=== PATIENT | male | born 1990 | race African-American/Black ===

== ENCOUNTER 2017-02-20 10:46 | Emergency (ER) | payer OTHER ==
[~2017-02-20] VITALS: Ht 190.5 cm; Wt 86.2 kg
[~2017-02-20 10:46] MED LIST: FLEXERIL PO; MEDROLDOSEPACK PO; MOBIC15 MG PO
[2017-02-20 10:52] VITALS: BP 122/66
[2017-02-20 11:17] LABS: URINE BILIRUBIN NEGATIVE (Negative); URINE BLOOD NEGATIVE (Negative); URINE COLOR YELLOW; URINE GLUCOSE-RANDOM* NEGATIVE (Negative); URINE KETONES NEGATIVE (Negative); URINE LEUKOCYTES-REFLEX NEGATIVE (Negative); URINE PROTEIN (DIPSTICK) TRACE (Negative); URINE SPECIFIC GRAVITY 1.015 (1.003-1.035)
== END 2017-02-20 11:40 | disposition home or self-care (01) ==
LOC: ER 10:46
PROVIDERS: Emergency Medicine
DX: R10.30 Lower abdominal pain, unspecified (principal)

== ENCOUNTER 2017-05-07 15:00 | Emergency (ER) | payer OTHER ==
[2017-05-07 15:00] VITALS: BP 127/77
[2017-05-07] MEDS ORDERED: MEDROLDOSEPACK PO (15:48)
[2017-05-07] MEDS ORDERED: LIORESAL 10 MG10 MG PO (15:48)
== END 2017-05-07 15:48 | disposition home or self-care (01) ==
LOC: ER 15:00
DX: M43.6 Torticollis (principal); M25.512 Pain in left shoulder

== ENCOUNTER 2017-12-24 13:57 | Emergency (ER) | payer OTHER ==
[~2017-12-24] VITALS: Ht 185.4 cm; Wt 83.9 kg
[~2017-12-24 13:57] MED LIST changes: +LIORESAL 10 MG10 MG PO
[2017-12-24 14:21] LABS: URINE BILIRUBIN NEGATIVE (Negative); URINE BLOOD NEGATIVE (Negative); URINE CLARITY CLEAR; URINE COLOR YELLOW; URINE GLUCOSE-RANDOM* NEGATIVE (Negative); URINE KETONES TRACE (Negative); URINE LEUKOCYTES NEGATIVE (Negative); URINE NITRITE NEGATIVE (Negative); URINE PROTEIN (DIPSTICK) NEGATIVE (Negative); URINE SPECIFIC GRAVITY 1.015 (1.005-1.035)
[2017-12-24] MEDS ORDERED: ONDANSETRON HCL4 M2 PO (14:28)
[2017-12-24 14:33] LABS: ABSOLUTE NEUTROPHILS 3.9 thou/uL (1.4-8.2); BASOPHILS 0.8 % (0.0-2.0); EOSINOPHILS 5.5 % (0.0-3.0); HEMATOCRIT 42.5 % (42.0-52.0); LYMPHOCYTES 31.7 % (24.0-44.0); MCH 27.5 pg (26.0-34.0); MCHC 32.8 g/dL (28.0-37.0); MCV 83.7 fL (80.0-100.0); MONOCYTES 8.1 % (1.0-8.0); PLATELET COUNT 259 thou/uL (150-400); POLYS 53.9 % (36.0-66.0); RBC 5.08 mil/uL (4.50-6.00); RDW 13.7 % (10.5-14.5); WBC 7.2 thou/uL (4.0-11.0)
[2017-12-24 14:46] LABS: POTASSIUM 3.6 mmol/L (3.5-5.1)
== END 2017-12-24 15:01 | disposition home or self-care (01) ==
LOC: ER 13:57
PROVIDERS: Nurse Practitioner
DX: R10.2 Pelvic and perineal pain (principal)

== ENCOUNTER 2018-03-10 21:50 | Emergency (ER) | payer OTHER ==
[~2018-03-10] VITALS: Ht 190.5 cm; Wt 86.2 kg
[~2018-03-10 21:50] MED LIST changes: +ONDANSETRON HCL4 M2 PO
[2018-03-10 22:13] VITALS: BP 119/71
== END 2018-03-10 22:47 | disposition home or self-care (01) ==
LOC: ER 21:50
DX: R09.81 Nasal congestion (principal); J02.9 Acute pharyngitis, unspecified; H92.03 Otalgia, bilateral; R05 Cough

== ENCOUNTER 2018-08-06 14:23 | Emergency (ER) | payer OTHER ==
[~2018-08-06] VITALS: Ht 188 cm; Wt 81.7 kg
[2018-08-06] MEDS ORDERED: AMOXICILLIN 50500 MG PO (14:57)
[2018-08-06 15:30] VITALS: BP 132/76
[2018-08-06 15:57] LABS: URINE BILIRUBIN NEGATIVE (Negative); URINE BLOOD NEGATIVE (Negative); URINE CLARITY CLEAR; URINE COLOR YELLOW; URINE GLUCOSE-RANDOM* NEGATIVE (Negative); URINE KETONES NEGATIVE (Negative); URINE LEUKOCYTES-REFLEX NEGATIVE (Negative); URINE NITRITE-REFLEX NEGATIVE (Negative); URINE PROTEIN (DIPSTICK) NEGATIVE (Negative); URINE SPECIFIC GRAVITY <= 1.005 (1.005-1.035); URINE UROBILINOGEN 0.2 E.U./dl (0.2-1.0)
[2018-08-06] MEDS ORDERED: NORCO 5-325 TA1 EACH PO (16:01)
== END 2018-08-06 16:07 ==
LOC: ER 14:23
PROVIDERS: Physician Assistant
DX: K08.89 Other specified disorders of teeth and supporting structures (principal)

== ENCOUNTER 2018-09-03 17:26 | Emergency (ER) | payer OTHER ==
[~2018-09-03] VITALS: Ht 188 cm; Wt 81.7 kg
[~2018-09-03 17:26] MED LIST changes: +AMOXICILLIN 50500 MG PO; +NORCO 5-325 TA1 EACH PO
[2018-09-03 17:30] VITALS: BP 146/78
[2018-09-03] MEDS ORDERED: IBUPROFEN 400400 M2 PO (17:41)
[2018-09-03] MEDS ORDERED: PENICILLIN VK500 M1 PO (17:41)
== END 2018-09-03 18:01 | disposition home or self-care (01) ==
LOC: ER 17:26
DX: K08.89 Other specified disorders of teeth and supporting structures (principal)

== ENCOUNTER 2018-10-07 13:31 | Emergency (ER) | payer OTHER ==
[~2018-10-07] VITALS: Ht 188 cm; Wt 81.7 kg
[~2018-10-07 13:31] MED LIST changes: +IBUPROFEN 400400 M2 PO; +PENICILLIN VK500 M1 PO
[2018-10-07] MEDS ORDERED: AUGMENTIN 875-1 EACH PO (14:22)
[2018-10-07 14:58] VITALS: BP 134/77
== END 2018-10-07 14:58 | disposition home or self-care (01) ==
LOC: ER 13:31
DX: J32.9 Chronic sinusitis, unspecified (principal)

== ENCOUNTER 2018-10-20 17:38 | Emergency (ER) | payer OTHER ==
[~2018-10-20] VITALS: Ht 188 cm; Wt 81.7 kg
[~2018-10-20 17:38] MED LIST changes: +AUGMENTIN 875-1 EACH PO
[2018-10-20] MEDS ORDERED: VENTOLIN HFA 1818 GM INH (18:46)
[2018-10-20] MEDS ORDERED: TESSALON PERLE100 MG PO (18:46)
[2018-10-20 18:56] VITALS: BP 128/75
== END 2018-10-20 18:57 | disposition home or self-care (01) ==
LOC: ER 17:38
DX: J06.9 Acute upper respiratory infection, unspecified (principal)

== ENCOUNTER 2018-11-22 10:08 | Emergency (ER) | payer OTHER ==
[~2018-11-22] VITALS: Ht 188 cm; Wt 86.2 kg
[2018-11-22 10:08] VITALS: BP 136/76
[~2018-11-22 10:08] MED LIST changes: +TESSALON PERLE100 MG PO; +VENTOLIN HFA 1818 GM INH
[2018-11-22] MEDS ORDERED: NAPROSYN500 MG PO (11:57)
[2018-11-22] MEDS ORDERED: NORCO 5-325 TA1 EACH PO (11:57)
== END 2018-11-22 12:08 | disposition home or self-care (01) ==
LOC: ER 10:08
DX: K02.9 Dental caries, unspecified (principal)

== ENCOUNTER 2019-04-17 14:20 | Emergency (ER) | payer OTHER ==
[~2019-04-17] VITALS: Ht 190.5 cm; Wt 88.5 kg
[~2019-04-17 14:20] MED LIST changes: +NAPROSYN500 MG PO
[2019-04-17 14:21] VITALS: BP 133/89
[2019-04-17] MEDS ORDERED: ULTRAM 50MG TAB50 MG PO (15:36)
== END 2019-04-17 15:45 | disposition home or self-care (01) ==
LOC: ER 14:20
DX: K02.9 Dental caries, unspecified (principal)

== ENCOUNTER 2019-06-08 08:39 | Emergency (ER) | payer OTHER ==
[~2019-06-08] VITALS: Ht 188 cm; Wt 81.7 kg
[~2019-06-08 08:39] MED LIST changes: +ULTRAM 50MG TAB50 MG PO
[2019-06-08] MEDS ORDERED: ROBAXIN 750 MG750 MG PO (10:01)
[2019-06-08] MEDS ORDERED: NAPROSYN500 MG PO (10:01)
[2019-06-08 10:30] VITALS: BP 124/67
== END 2019-06-08 10:30 | disposition home or self-care (01) ==
LOC: ER 08:39
DX: S06.0X1A Concussion with loss of consciousness of 30 minutes or less, initial encounter (principal); S20.20XA Contusion of thorax, unspecified, initial encounter; S16.1XXA Strain of muscle, fascia and tendon at neck level, initial encounter; V89.2XXA Person injured in unspecified motor-vehicle accident, traffic, initial encounter; Y93.89 Activity, other specified; Y92.488 Other paved roadways as the place of occurrence of the external cause; Y99.8 Other external cause status

== ENCOUNTER 2019-06-30 17:52 | Emergency (ER) | payer OTHER ==
[~2019-06-30] VITALS: Ht 188 cm; Wt 86.2 kg
[~2019-06-30 17:52] MED LIST changes: +ROBAXIN 750 MG750 MG PO
[2019-06-30 17:53] VITALS: BP 126/73
[2019-06-30] MEDS ORDERED: TESSALON PERLE100 MG PO (18:58)
== END 2019-06-30 19:05 | disposition home or self-care (01) ==
LOC: ER 17:52
DX: J06.9 Acute upper respiratory infection, unspecified (principal)

== ENCOUNTER 2020-02-21 04:48 | Emergency (ER) | payer OTHER ==
[~2020-02-21] VITALS: Ht 188 cm; Wt 88.5 kg
[2020-02-21 04:49] VITALS: BP 140/80
== END 2020-02-21 05:25 | disposition home or self-care (01) ==
LOC: ER 04:48
DX: K02.9 Dental caries, unspecified (principal)

== ENCOUNTER 2020-03-02 05:28 | Emergency (ER) | payer OTHER ==
[~2020-03-02] VITALS: Ht 188 cm; Wt 86.2 kg
[2020-03-02] MEDS ORDERED: PENICILLIN V P500 MG PO (06:22)
[2020-03-02] MEDS ORDERED: MOBIC15 MG PO (06:22)
[2020-03-02 06:39] VITALS: BP 136/74
== END 2020-03-02 06:39 | disposition home or self-care (01) ==
LOC: ER 05:28
DX: K02.9 Dental caries, unspecified (principal)

== ENCOUNTER 2020-04-15 19:34 | Emergency (ER) | payer OTHER ==
[~2020-04-15] VITALS: Ht 190.5 cm; Wt 86.2 kg
[~2020-04-15 19:34] MED LIST changes: +PENICILLIN V P500 MG PO
[2020-04-15 20:24] VITALS: BP 125/85
== END 2020-04-15 20:27 | disposition home or self-care (01) ==
LOC: ER 19:34
DX: R51 Headache (principal); Z20.828 Contact with and (suspected) exposure to other viral communicable diseases; Z79.2 Long term (current) use of antibiotics; Z79.899 Other long term (current) drug therapy

== ENCOUNTER 2020-05-02 19:26 | Emergency (ER) | payer OTHER ==
[~2020-05-02] VITALS: Ht 190.5 cm; Wt 86.2 kg
[2020-05-02 19:44] VITALS: BP 119/80
[2020-05-02] MEDS ORDERED: MIRALAX119 GM PO (20:38)
== END 2020-05-02 20:55 | disposition home or self-care (01) ==
LOC: ER 19:26
DX: K59.00 Constipation, unspecified (principal)